=== PATIENT | male | born 1960 | race Caucasian/White ===

== ENCOUNTER → 2018-12-11 | Outpatient (CLI) | payer BC ==
--- NOTE | 2018-12-11 22:05 | ECHOS ---
STRESS ECHOCARDIOGRAM DATE OF SERVICE: 12/11/2018 INDICATIONS: Chest pain. MEDICATIONS: Amlodipine, atorvastatin. BASELINE HEART RATE: 59 BASELINE BLOOD PRESSURE: 131/73 MAXIMUM HEART RATE: 160 MAXIMUM BLOOD PRESSURE: 216/107 85% MPHR: 139 100% MPHR: 164 METS: 10.3 MAXIMUM STAGE REACHED: 3 TOTAL EXERCISE TIME: 9:00 CLINICAL INFORMATION: STRESS DATA: Before the test, heart rate was 59, pressure 131/73 mmHg. Baseline EKG showed sinus mechanism. The patient exercised on a treadmill according to Dane protocol for a total of 9 minutes and achieved 10.3 METs. Max heart rate was 160, which is about 97% of maximum predicted heart rate. Maximum blood pressure was 216/107 mmHg. Clinically the patient did not have any symptoms of chest pain or discomfort. The EKG did not show any significant ST or T-wave abnormalities concerning for ischemia. Echocardiogram images and echo from parasternal long axis view, parasternal short axis view, apical 4 chamber and apical 2 chamber views were obtained as the baseline images at the peak of the heart rate as well as on recovery. The echocardiogram images showed good augmentation in the left ventricular systolic function without any evidence of wall motion abnormalities concerning for ischemia. CONCLUSION: 1. Excellent exercise tolerance. 2. Normal EKG in response to exercise. 3. Normal echocardiogram in response to exercise. 4. Essentially normal stress test for the patient. MMODL / IJN: [id number] /
== END | disposition home or self-care (01) ==
LOC: RADNMMAIN 09:35
PROVIDERS: ATTEND Internal Medicine Geriatric Medicine
DX: R94.31 Abnormal electrocardiogram [ECG] [EKG] (principal)
CPT/HCPCS: 93351

== ENCOUNTER 2020-05-09 11:22 | Emergency (ER) | payer BC ==
[2020-05-09 11:32] VITALS: RESP 18
[2020-05-09] MEDS ORDERED: SODIUM CHLORIDE 0.9% 1,000 ML IV ONE (12:12)
--- NOTE | 2020-05-09 12:15 | ED ---
General Adult HPI - General Chief complaint: Fever Stated complaint: N/V/D, fever Time Seen by Provider: 05/09/20 11:30 Source: patient, RN notes reviewed, old records reviewed Mode of arrival: wheelchair Limitations: no limitations - History of Present Illness Initial comments: This is a 59-year-old male who presents emergency Department with a 2 day h istory of fever and nausea vomiting diarrhea. Patient states diarrhea continues today but the nausea and vomiting stopped yesterday. Patient states he's also only had a low-grade fever today. Patient states the fever 2 days ago was 101. Patient denies any shortness of breath difficulty breathing or cough. Patient denies any chest pain. Patient denies any lightheadedness or dizziness. Patien t denies any lesions or rashes. Patient states he was on Keflex in March. Patient states she's had no exposure to COVID. - Related Data Allergies Allergy/AdvReac Type Severity Reaction Status Date / Time No Known Allergies Allergy Verified 05/09/20 11:32 Review of Systems ROS Statement: Those systems with pertinent positive or pertinent negative responses have been documented in the HPI. ROS Other: All systems not noted in ROS Statement are negative. Past Medical History Past Medical History: Coronary Artery Disease (CAD), Hyperlipidemia, Hypertension History of Any Multi-Drug Resistant Organisms: None Reported Past Surgical History: No Surgical Hx Reported Past Psychological History: No Psychological Hx Reported Smoking Status: Never smoker Past Alcohol Use History: None Reported Past Drug Use History: None Reported General Exam - General Exam Comments Initial Comments: GENERAL: Patient is well-developed and well-nourished. Patient is nontoxic and well- hydrated and is in mild distress. ENT: Neck is soft and supple. No significant lymphadenopathy is noted. Oropharynx is clear. Moist mucous membranes. Neck has full range of motion without eliciting any pain. EYES: The sclera were anicteric and conjunctiva were pink and moist. Extraocular movements were intact and pupils were equal round and reactive to light. Eyelids were unremarkable. PULMONARY: Unlabored respirations. Good breath sounds bilaterally. No audible rales rhonchi or wheezing was noted. CARDIOVASCULAR: There is a regular rate and rhythm without any murmurs gallops or rubs. ABDOMEN: Soft and nontender with normal bowel sounds. SKIN: Skin is clear with no lesions or rashes and otherwise unremarkable. NEUROLOGIC: Patient is alert and oriented x3. Cranial nerves II through XII are grossly intact. Motor and sensory are also intact. Normal speech, volume and content. Symmetrical smile. MUSCULOSKELETAL: Normal extremities with adequate strength and full range of motion. No lower extremity swelling or edema. No calf tenderness. LYMPHATICS: No significant lymphadenopathy is noted PSYCHIATRIC: Normal psychiatric evaluation. Limitations: no limitations Course Vital Signs 05/09/20 11:29 Temperature 99.2 F Pulse Rate 82 Respiratory 18 Rate Blood Pressure 127/83 O2 Sat by Pulse 100 Oximetry Medical Decision Making - Medical Decision Making Chest x-ray shows no acute abnormality. I will begin to reevaluate the patient he was not having any more nausea or diarrhea while in the emergency department. - Lab Data Result diagrams: 05/09/20 12:40 05/09/20 12:40 Lab Results 05/09/20 05/09/20 Range/Units 12:40 12:40 WBC 9.7 (3.8-10.6) k/uL RBC 4.79 (4.30-5.90) m/uL Hgb 14.6 (13.0-17.5) gm/dL Hct 44.3 (39.0-53.0) % MCV 92.6 (80.0-100.0) fL MCH 30.5 (25.0-35.0) pg MCHC 33.0 (31.0-37.0) g/dL RDW 12.4 (11.5-15.5) % Plt Count 200 (150-450) k/uL Neutrophils % 83 % Lymphocytes % 8 % Monocytes % 6 % Eosinophils % 1 % Basophils % 1 % Neutrophils # 8.0 H (1.3-7.7) k/uL Lymphocytes # 0.8 L (1.0-4.8) k/uL Monocytes # 0.6 (0-1.0) k/uL Eosinophils # 0.1 (0-0.7) k/uL Basophils # 0.1 (0-0.2) k/uL Sodium 134 L (137-145) mmol/L Potassium 4.4 (3.5-5.1) mmol/L Chloride 101 (98-107) mmol/L Carbon Dioxide 26 (22-30) mmol/L Anion Gap 7 mmol/L BUN 15 (9-20) mg/dL Creatinine 0.84 (0.66-1.25) mg/dL Est GFR (CKD-EPI)AfAm >90 (>60 ml/min/1.73 sqM) Est GFR (CKD-EPI)NonAf >90 (>60 ml/min/1.73 sqM) Glucose 105 H (74-99) mg/dL Calcium 9.5 (8.4-10.2) mg/dL Total Bilirubin 0.7 (0.2-1.3) mg/dL AST 28 (17-59) U/L ALT 15 (4-49) U/L Alkaline Phosphatase 69 (38-126) U/L Total Protein 7.2 (6.3-8.2) g/dL Albumin 4.3 (3.5-5.0) g/dL Disposition Clinical Impression: Gastroenteritis Disposition: HOME SELF-CARE Condition: Good Instructions (If sedation given, give patient instructions): Gastroenteritis (ED) Is patient prescribed a controlled substance at d/c from ED?: No Referrals: Drew Sanchez MD [Primary Care Provider] - 1-2 days Time of Disposition: 13:28
--- NOTE | 2020-05-09 12:37 | XR ---
EXAMINATION TYPE: XR chest 2V DATE OF EXAM: 05/09/2020 COMPARISON: NONE TECHNIQUE: PA and lateral views submitted. HISTORY: Difficulty breathing, cough, fever and chills FINDINGS: The lungs are clear and there is no pneumothorax, pleural effusion, or focal pneumonia. Hyperinflat ion noted. No overt failure. IMPRESSION: 1. No acute process.
[2020-05-09 13:05] LABS: Basophils # (A) 0.1 k/uL (0-0.2); Basophils % (A) 1 %; Eosinophils # (A) 0.1 k/uL (0-0.7); Eosinophils % (A) 1 %; HCT 44.3 % (39.0-53.0); HGB 14.6 gm/dL (13.0-17.5); Lymphocytes # (A) 0.8 k/uL (1.0-4.8); Lymphocytes % (A) 8 %; MCH 30.5 pg (25.0-35.0); MCV 92.6 fL (80.0-100.0); Mean Platelet Volume 8.2; Monocytes # (A) 0.6 k/uL (0-1.0); Monocytes % (A) 6 %; Neutrophils % (A) 83 %; Platelet Count 200 k/uL (150-450); RBC 4.79 m/uL (4.30-5.90); RDW 12.4 % (11.5-15.5); WBC 9.7 k/uL (3.8-10.6)
[2020-05-09] MEDS: DIPHENOX-ATROP 2.5-0.025 MG 1 EACH TAB PO STA ×2 (13:13→13:39)
[2020-05-09 13:16] LABS: ALT 15 U/L (4-49); AST 28 U/L (17-59); African American GFR (CKD) >90 (>60 ml/min/1.73 sqM); Albumin 4.3 g/dL (3.5-5.0); Alkaline Phosphatase 69 U/L (38-126); Anion Gap 7 mmol/L; Blood Urea Nitrogen 15 mg/dL (9-20); Calcium 9.5 mg/dL (8.4-10.2); Carbon Dioxide 26 mmol/L (22-30); Chloride 101 mmol/L (98-107); Glucose 105 mg/dL (74-99); Non-African American GFR(CKD) >90 (>60 ml/min/1.73 sqM); Potassium 4.4 mmol/L (3.5-5.1); Sodium 134 mmol/L (137-145); Total Bilirubin 0.7 mg/dL (0.2-1.3); Total Protein 7.2 g/dL (6.3-8.2)
[2020-05-09] MEDS ORDERED: DIPHENOX-ATROP STARTER PACK 8 TAB BTL PO STA (13:29)
[2020-05-09] MEDS ORDERED: DIPHENOX-ATROP 2.5-0.025 MG 1 EACH TAB PO STA (13:36)
[2020-05-09 13:48] VITALS: BP 120/80; PULSE 80; TEMP 99
== END 2020-05-09 13:40 | disposition home or self-care (01) ==
LOC: EC 11:22
DX: K52.9 Noninfective gastroenteritis and colitis, unspecified (principal); Z20.828 Contact with and (suspected) exposure to other viral communicable diseases
CPT/HCPCS: 36415; 80053; 85025; 71046; 99284; U0003

== ENCOUNTER → 2022-06-19 | Outpatient (CLI) | payer BC ==
--- NOTE | 2022-06-19 14:58 | US ---
EXAMINATION TYPE: US thyroid st tissue head/neck DATE OF EXAM: 06/19/2022 COMPARISON: NONE CLINICAL HISTORY: E03.9 HYPOTHYROIDISM UNSP. Pt states abnormal thyroid labs GLAND SIZE: Right Lobe: 3.9 x 1.6 x 1.7 cm cm Overall Parenchyma: heterogenous Left Lobe: 3.6 x 1.0 x 1.0 cm Overall Parenchyma: heterogeneous Isthmus Thickness: 0.4 cm NODULES RIGHT: # of nodules measured on right: 0 LEFT: # of nodules measured on left: 1 1. 0.7 X 0.6 x 0.7 cm solid or almost completely solid, hypoechoic nodule, which is wider than tall , with smooth margins, without echogenic foci. Prior size: No prior ISTHMUS: # of nodules measured in the isthmus: 0 Bilateral neck scanned, no evidence of lymphadenopathy. Heterogeneous thyroid with sub-centimeter nod ule left lobe. IMPRESSION: Nonspecific subcentimeter thyroid nodularity and heterogeneity.
== END | disposition home or self-care (01) ==
LOC: RADUSWWP 14:03
PROVIDERS: ATTEND Internal Medicine Geriatric Medicine
DX: E04.1 Nontoxic single thyroid nodule (principal); E03.9 Hypothyroidism, unspecified
CPT/HCPCS: 76536